=== PATIENT | female | born 1995 | race Caucasian/White ===

== ENCOUNTER 2017-08-29 14:38 | Emergency (ER) | payer BC ==
[2017-08-29 14:46] VITALS: BP 141/87
--- NOTE | 2017-08-29 15:16 | EDPHY ---
HPI/HX/ROS/PE/MDM Narrative: CHIEF COMPLAINT: Choked on food HPI: The patient is a 21 y/o female with a history of eosinophilic oesophagitis complaining of choking on food and becoming short of breath at 14:45, 30 minutes ago. After choking, she began to hyperventilate, causing her to feel faint and have numbness in her hands and feet. Several minutes later she began to feel the food pass through her esophagus, but was still concerned due to the hyperventilation so she presented to the emergency department. She currently feels normal and is not short of breath. Denies chest pain, shortness of breath , abdominal pain, urinary or bowel complaints, fever. Denies having a choral teacher in [place]. REVIEW OF SYSTEMS: Aside from elements discussed in the HPI, a comprehensive 10-point review of systems was reviewed and is negative. PMH: Eosinophilic oesophagitis, asthma SOCIAL HISTORY: Student at , originally from [place], [facility] PHYSICAL EXAM: General: Patient is alert, in no acute distress. ENT: Eyes are normal to inspection. ENT inspection normal. Neck: Normal inspection. Full range of motion. Respiratory: No respiratory distress. Breath sounds normal bilaterally. Cardiovascular: Regular rate and rhythm. Strong peripheral pulses. Normal cap refill. Abdomen: The abdomen is nontender to palpation. There are no peritoneal signs. There are normal bowel sounds. Back: Normal to inspection. No tenderness to palpation. Skin: Normal color. No rash. Warm and dry. Extremities: Normal appearance. Full range of motion. Neuro: Oriented x3. Normal motor function. Normal sensory function. ED Course: 1515: Patient is able to swallow water without difficulty. At this time she does not require imaging or laboratory studies. Her symptoms are consistent with a food impaction in the esophagus which is now resolved. I have discussed following up with a choral teacher this week. Return precautions provided; patient is comfortable with this plan. General Time Seen by Provider: 08/29/17 15:12 Initial Vital Signs: Initial Vital Signs Heart Rate 133 H 08/29/17 14:44 Respiratory Rate 24 H 08/29/17 14:44 Blood Pressure 141/87 H 08/29/17 14:44 O2 Sat (%) 98 08/29/17 14:44 O2 Delivery Mode Room Air Allergies/Adverse Reactions: No Known Allergies Allergy (Unverified 05/06/18 14:43) Home Medications: Medication Instructions Recorded Birthcontrol 08/29/17 Departure - Departure Disposition: Home, Routine, Self-Care Clinical Impression: Food impaction of esophagus Qualifiers: Encounter type: initial encounter Qualified Code(s): T18.128A - Food in esophagus causing other injury, initial encounter Condition: Good Instructions: Food Impaction (ED) Additional Instructions: Follow-up with a choral teacher this week. You have been referred to Dr. Kohler. Return to the Emergency Department for fever, chest pain, shortness of breath, increasing pain or other worsening of condition. Referrals: Avinash Kohler MD [Medical Doctor] - As per Instructions Report Scribed for: Kenrick Phan Report Scribed by: Venus Armstrong Date of Report: 08/29/17 Time of Report: 15:13 Physician Review and Approval Statement: Portions of this note were transcribed by an ED scribe. I personally performed the history, physical exam, and medical decision making; and confirm the accuracy of the information in the transcribed note.
== END 2017-08-29 15:24 | disposition home or self-care (01) ==
DX: T18.128A Food in esophagus causing other injury, initial encounter (principal); J45.909 Unspecified asthma, uncomplicated; X58.XXXA Exposure to other specified factors, initial encounter